=== PATIENT | female | born 1950 | race Caucasian/White ===

== ENCOUNTER 2017-04-14 08:47 | Emergency (ER) | payer MEDICARE, OTHER ==
[2017-04-14 09:20] VITALS: BP 141/67
[2017-04-14] MEDS ORDERED: Acetaminop/Codeine 30 MG TAB* 1 TAB (300 MG/30 MG) PO ONE (10:09)
--- NOTE | 2017-04-14 10:36 | UC ---
Hand/Wrist HPI - HPI Summary HPI Summary: 67 yo female C/o progressively increased R 3rd finger pain. Pain originates pip joint. + redness and swelling. Pain and swelling extend MCP. No p/d. Hurts to move. No fever. No inciting injury / fb. + hx osteoarthritis ( reports was tested for RH arthritis years ag - negative). No sob / cp / palpitations. No GI Issues. Also notes L ear canal irritated and itchy. Wears hearing aids. Has several medical complications, including multiple past prednisone use (not recently), also hx adrenal insufficiency controlled (sees Dr. Alba). - History Of Current Complaint Chief Complaint: UCUpperExtremity Stated Complaint: RIGHT HAND COMPLAINT Time Seen by Provider: 04/14/17 09:42 Hx Obtained From: Patient - Allergies/Home Medications Allergies/Adverse Reactions: Allergies Allergy/AdvReac Type Severity Reaction Status Date / Time Ibuprofen Allergy Severe Swelling Verified 04/14/17 09:12 Of Face,Lips,& Throat TOPICAL PETROLEUM Allergy BLISTERS, Uncoded 04/14/17 09:12 REDNESS Home Medications: Home Medications Bethanechol TAB* [Urecholine TAB*] 1 tab TID 04/14/17 [History Confirmed ] Latanoprost 0.005%* [Xalatan 0.005%*] 1 drop BEDTIME 04/14/17 [History Confirmed 04/14/17] Pantoprazole Sodium [Protonix] 1 tab BID 04/14/17 [History Confirmed 04/14/17] PMH/Surg Hx/FS Hx/Imm Hx Previously Healthy: No - see hpi. Reviewed PMH intake. - Surgical History Surgical History: Yes Surgery Procedure, Year, and Place: TONSILLECTOMY, HYSTERECTOMY,RIGHT ELBOW, BLADDER SUSPENSION, BLADDER SLING. NISON FUNDALPLACATION, BILATER CTR, GALL BLADDER REMOVAL. NASAL SURGERY, CATARACS. - Social History Alcohol Use: None Substance Use Type: None Smoking Status (MU): Never Smoked Tobacco - Immunization History Most Recent Influenza Vaccination: NOT YET 2017 Review of Systems Constitutional: Negative Skin: Other - see hpi Eyes: Negative ENT: Other - see hpi Respiratory: Negative Cardiovascular: Negative Gastrointestinal: Negative Genitourinary: Negative Motor: Other - see hpi Neurovascular: Negative Musculoskeletal: Arthralgia Neurological: Negative Psychological: Negative Is Patient Immunocompromised?: No All Other Systems Reviewed And Are Negative: Yes Physical Exam Triage Information Reviewed: Yes Appearance: Well-Nourished - sitting up, conversing easily and appropriately. NAD. Nontoxic. Vital Signs: Initial Vital Signs Temp 97.1 F 04/14/17 09:13 Pulse 84 04/14/17 09:13 Resp 18 04/14/17 09:13 BP 141/67 04/14/17 09:13 Pulse Ox 98 04/14/17 09:13 Vital Signs Reviewed: Yes Eye Exam: Normal ENT: Positive: Other: - EAC's au mild redness, TM's intact. EAC L increased red compared with R. Neck exam: Normal Respiratory Exam: Normal - no tachypnea, no dyspnea Cardiovascular Exam: Normal - heart rate regular. good cap refill Abdominal Exam: Normal Musculoskeletal Exam: Other - Both hands are arthritic with deformities of joints. R hand 3rd digit with redness, swelling PIP worse dorsal than volar. Redness and swelling extends to MCP region. Not overly hot to touch. No drainage, no fluctuance. No sores appreciated. CR < 2 sec. Distal sens LT present. Painful to bend finger. Neurological Exam: Normal - nonfocal. grossly intact. detailed neuro not done. Psychological Exam: Normal Skin Exam: Other - see R hand Hand/Wrist Course/Dx - Course Course Of Treatment: No new problems in CCC reported. Considered imaging but no report of trauma / fb. More consistent with inflammatory condition. Considered infectious (although not hot to touch), as such will start abx. However, more suspicious of acute arthritic inflammation. D/w pt. We will check inflamm studies including crp, esr. Also rheumatoid factor. Bmp, cbc, and lyme also ordered. D/w pt - while she is not excited about prednisone, in this instance she will start prednisone taper. Will f/u pcp (and Dr. Alba). T# 3 x two dispensed (denies addiction hx). Encouraged to go to the ED for worse or new problems. F/u PCP on Monday. Questions as posed answered to the best of my ability. 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 Go to the Emergency Department for worse or new problems in the meantime. Blood work today.
[2017-04-14 18:46] LABS: Hematocrit 43 % (35-47); Hemoglobin 14.4 g/dl (12.0-16.0); Mean Corpuscular HGB Conc 33 g/dl (31-36); Mean Corpuscular Hemoglobin 29 pg (27-31); Mean Corpuscular Volume 87 fL (80-97); Mean Platelet Volume 9 um3 (7.4-10.4); Red Cell Distribution Width 17 % (10.5-15); White Blood Count 11.9 10^3/ul (3.5-10.8)
[2017-04-14 19:06] LABS: BUN/Creatinine Ratio 28.4 (8-20); C Reactive Protein 12.55 mg/L (< 5.00); Calcium 9.4 mg/dL (8.6-10.3); EGFR African American 91.3 (>60); Potassium 3.4 mmol/L (3.5-5.0)
[2017-04-14 20:26] LABS: Erythrocyte Sed Rate 36 mm/Hr (0-40)
[2017-04-17 13:46] LABS: Rheumatoid Factor <15 IU/mL (<15)
== END 2017-04-14 10:34 | disposition home or self-care (01) ==
LOC: UCCORT 08:47
DX: M13.841 Other specified arthritis, right hand (principal)
CPT/HCPCS: 36415; 80048; 85025; 85652; 86140; 86431; 86618; 99212; A9270-GY; G0463

== ENCOUNTER 2024-02-07 18:07 | Observation (INO) ==
[2024-02-07 20:21] LABS: ABS Eosinophils 0.1 10^3/uL (0.0-0.5); ABS Lymphocytes 0.7 10^3/uL (1.0-4.8); ABS Monocytes 0.5 10^3/uL (0.0-0.9); ABS Neutrophils 13.7 10^3/uL (1.5-7.6); ABS Nucleated RBC 0.01 10^3/ul; Eosinophil % 0.4 %; Hematocrit 44.7 % (35-45); Hemoglobin 14.7 g/dL (11.5-14.3); Lymphocyte % 4.8 %; Mean Corpuscular Hemoglobin 27.8 pg (27-33); Mean Corpuscular Volume 84.4 fL (80-97); Mean Platelet Volume 8.8 fL (7.5-11.2); Platelet Count 178 10^3/uL (150-450); Red Blood Count 5.29 10^6/uL (3.63-4.92); Red Cell Distribution Width 17.8 % (12-17); White Blood Count 15.1 10^3/uL (3.8-11.8)
[2024-02-07] MEDS: Ondansetron 4 mg VIAL 2 MG/ML 2 ml VIAL IV ONE (20:57)
[2024-02-07 21:04] LABS: Anion Gap 12 mmol/L (2-16); Blood Urea Nitrogen 30 mg/dL (6-24); C Reactive Protein < 1.00 mg/L (<8.01); CO2 Carbon Dioxide 25 mmol/L (22-32); Calcium 9.6 mg/dL (8.6-10.3); Chloride 100 mmol/L (101-111); Glucose 131 mg/dL (70-100); Sodium 137 mmol/L (135-145); eGFR CKD-EPI 59.9 (>60)
[2024-02-07] MEDS: Piperacillin/Tazobac 3.375 BAG 3.375 GM/100 ML BAG IV ONE (21:14)
[2024-02-07] MEDS: Lactated Ringers 1000 ml BAG 1,000 ML IV ONE (21:14)
[2024-02-07 21:45] LABS: INR 1.07 (0.83-1.13)
[2024-02-07] MEDS: Vancomycin 1,000 MG in NS 0.9% 250 ml 250 ML IVPB ONE (21:50)
[2024-02-07 22:11] LABS: Albumin 4.7 g/dL (3.2-5.2); Albumin/Globulin Ratio 2.6 (1-3); Direct Bilirubin 0.2 mg/dL (0.03-0.18); Globulin 1.8 g/dL (2-4); Indirect Bilirubin 0.9 mg/dL (0.3-1.0); Total Bilirubin 1.1 mg/dL (0.2-1.0); Total Protein 6.5 g/dL (6.4-8.9)
[2024-02-07] MEDS: Iodixanol (CONTRAST) 320 MG/ML 100 ML SDV IV ONE (22:12)
[2024-02-08] MEDS ORDERED: Polyethylene Glycol 3350 17 GM PACKET PO PRN (01:42)
[2024-02-08] MEDS ORDERED: Senna TAB 8.6 mg TAB PO PRN (01:43)
[2024-02-08] MEDS ORDERED: Vancomycin per Pharmacy 1 EA NOTE FOLLOW UP SCH (02:00)
[2024-02-08] MEDS: Morphine 2 MG/ML SYRINGE IV PRN (02:12)
[2024-02-08] MEDS ORDERED: Dextrose 50% Syringe 50 ml 25 GM/50 ML SYRINGE IV PUSH PRN ×2 (02:22→05:18)
[2024-02-08 03:39] LABS: Hematocrit 42.3 % (35-45); Hemoglobin 14.3 g/dL (11.5-14.3); Mean Corpuscular Hemoglobin 28.7 pg (27-33); Mean Corpuscular Hgb Conc 33.7 g/dL (31-36); Mean Corpuscular Volume 85.2 fL (80-97); Mean Platelet Volume 8.8 fL (7.5-11.2); Platelet Count 164 10^3/uL (150-450); Red Blood Count 4.97 10^6/uL (3.63-4.92); Red Cell Distribution Width 17.6 % (12-17); White Blood Count 8.8 10^3/uL (3.8-11.8)
[2024-02-08 03:47] LABS: Albumin 4.4 g/dL (3.2-5.2); Albumin/Globulin Ratio 2.4 (1-3); Creatinine, Serum 0.89 mg/dL (0.51-0.95); Globulin 1.8 g/dL (2-4); Total Bilirubin 1.4 mg/dL (0.2-1.0); Total Protein 6.2 g/dL (6.4-8.9); eGFR CKD-EPI 68.8 (>60)
[2024-02-08] MEDS ORDERED: Albuterol HFA INHALER 8 gm MDI INH PRN (05:18)
[2024-02-08] MEDS ORDERED: Albuterol 2.5mg/3 ml (0.083%) NEB.SOLN INH PRN (05:18)
[2024-02-08] MEDS ORDERED: Magnesium Hydroxide LIQ 30 ML UDC PO PRN (05:18)
[2024-02-08 05:57] LABS: Magnesium 2.2 mg/dL (1.9-2.7)
[2024-02-08] MEDS: Enoxaparin 40 MG/0.4 ML SYR SUBCUT SCH (06:49)
[2024-02-08] MEDS: Cefepime 2 GM in Dextrose 2 GM/50 ML BAG IV SCH (06:50)
[2024-02-08] MEDS: Mometasone/Formoter 200/5 MDI INH SCH (07:32)
[2024-02-08] MEDS: Ondansetron 4 mg VIAL 2 MG/ML 2 ml VIAL IV PRN (07:32)
[2024-02-08] MEDS: ACTUATION MIST INH SCH (07:33)
[2024-02-08] MEDS: TIOTROPIUM BROMIDE INH SCH (07:33)
[2024-02-08] MEDS: Brimonidine P 0.1%(NF) 1 DROP BTL BOTH EYES SCH (09:19)
[2024-02-08] MEDS: Fluticasone NASAL SPRAY 50MCG 16 gm SPRAY BTL INTRANASAL SCH (09:20)
[2024-02-08] MEDS: Vancomycin 750 MG in NS 0.9% 250 ML IVPB SCH (09:29)
[2024-02-08 09:53] LABS: Urine Appearance No Cx Turbid (Clear); Urine Bilirubin No Culture Negative (Negative); Urine Blood No Culture 3+ (Negative); Urine Color No Culture Yellow; Urine Glucose No Culture Negative (Negative); Urine Ketones No Culture Trace (Negative); Urine Leukocytes No Culture 500 (3+) Leu/uL (Negative); Urine Nitrite No Culture Negative (Negative); Urine Protein No Culture 1+ (>=30 mg/dL) (Negative); Urine Specific Gravity No Cx 1.034 (1.002-1.030); Urine Urobilinogen No Cx Negative (Negative); Urine pH No Culture 6.5 (5.0-8.0)
[2024-02-08 10:08] LABS: Ur Squamous Epithelial No Cx Present /HPF (Absent); Ur Transitional Epi No Culture Present /HPF (Absent); Urine Bacteria No Culture Absent /HPF (Absent); Urine Red Blood Cell No Cult 3+(>10/hpf) /HPF (0-Trace); Urine White Blood Cell No Cult 3+(>20/hpf) /HPF (0-Trace)
[2024-02-08] MEDS ORDERED: cefTRIAXone 1 gm/50 mL D5W 1 GM/50 ML BAG IV ONE (11:38)
[2024-02-08] MEDS: Iodixanol (CONTRAST) 320 MG/ML 100 ML SDV IV ONE (22:10)
[2024-02-08] MEDS: Latanoprost 0.005% 2.5 ml BTL BOTH EYES SCH (22:33)
[2024-02-08] MEDS: Insulin GLARGINE 100 un/ml 10 ml VIAL SUBCUT SCH (22:33)
[2024-02-09] MEDS ORDERED: Vancomycin Trough Check NOTE FOLLOW UP ONE (06:00)
[2024-02-09 06:32] LABS: ABS Eosinophils 0.1 10^3/uL (0.0-0.5); ABS Lymphocytes 1.5 10^3/uL (1.0-4.8); ABS Monocytes 0.7 10^3/uL (0.0-0.9); ABS Neutrophils 4.5 10^3/uL (1.5-7.6); ABS Nucleated RBC 0.01 10^3/ul; Eosinophil % 1.2 %; Hematocrit 39.7 % (35-45); Hemoglobin 13.4 g/dL (11.5-14.3); Lymphocyte % 22.4 %; Mean Corpuscular Hemoglobin 28.7 pg (27-33); Mean Corpuscular Hgb Conc 33.7 g/dL (31-36); Mean Corpuscular Volume 84.9 fL (80-97); Nucleated Red Blood Cells % 0.1 %/100WBC (0.0-0.8); Platelet Count 165 10^3/uL (150-450); Red Blood Count 4.68 10^6/uL (3.63-4.92); Red Cell Distribution Width 17.9 % (12-17); White Blood Count 6.8 10^3/uL (3.8-11.8)
[2024-02-09 06:54] LABS: Calcium 8.7 mg/dL (8.6-10.3); Creatinine, Serum 0.75 mg/dL (0.51-0.95); Magnesium 2.3 mg/dL (1.9-2.7); eGFR CKD-EPI 84.5 (>60)
[2024-02-09] MEDS ORDERED: cefTRIAXone 1 gm/50 mL D5W 1 GM/50 ML BAG IV SCH (12:00)
[2024-02-09] MEDS: cefTRIAXone 1 GM ONETIME (ADVAN) IVPB SCH (12:04)
[2024-02-09] MEDS ORDERED: SPIRIVA Respimat (tiotropium) 2.5 mcg/inh Inhaler INH SCH (14:00)
[2024-02-09 14:12] VITALS: BP 160/72
== END 2024-02-09 15:31 | disposition home or self-care (01) ==
LOC: EDHOLD 18:07 → ED 18:07 → SUATTDRO 02-08 00:17 → MEDTELE 02-08 02:29
PROVIDERS: ADMIT Internal Medicine; ATTEND Student in an Organized Health Care Education/Training Program